=== PATIENT | male | born 1950 | race African-American/Black ===

== ENCOUNTER 2017-03-04 22:20 | Emergency (ER) | payer OTHER ==
[~2017-03-04] VITALS: Ht 172.7 cm; Wt 78.5 kg
[~2017-03-04 22:20] MED LIST: ACETAMINOPHEN325 M1 PO; AEROBID7 GM IH; ALDACTONE25 MG PO; AMARYL4 MG PO; AMLODIPINE BESY10 MG PO; AMLODIPINE BESYL5 MG PO; APAP500; ARTIFICIAL TEA1 EACH OPHTHALMIC; ARTIFICIAL TEAR15 M1 OP; ASPIRIN325 PO; ATIVAN0.5 MG PO; CARVEDILOL12.5 MG PO; CARVEDILOL25 MG PO; CATAPRES-TTS 10.1 M1 TD; CLONIDINE0.1 PO; COLACE100 MG PO; COMBIVENT IH; COMBIVENT INH; COMBIVENT RESPIM4 GM INH; COREG; COREG25 MG PO; DOXYCYCLINE 10100 MG PO; DUONEB 2.5-0.5 M3 ML IH; DUONEB 2.5-0.5 M3 ML INH; FISH OIL 1,0001 EAC5 PO; FISH OIL 1,001000 M1 PO; FISHOIL; GABAPENTIN100 MG PO; GLUCAGEN1 M2 IM; GLUCOPHAGE1000 MG PO; HUMALOG100 UNIT/2 SQ; HYDRALAZINE 10M10 MG PO; HYDRALAZINE 5050 MG PO; HYDRALAZINE PO; IMDUR 30 MG TAB30 M1 PO; IMDUR 60 MG TAB60 M1 PO; LANTUS SC; LANTUS SQ; LANTUS SUBQ; LIPITOR10 MG PO; LISINOPRIL10 MG PO; LISINOPRIL20 MG PO; LISINOPRIL30 MG PO; LOPERAMIDE 2 MG2 M1 PO; MAG-OX 400 TAB400 M1 PO; MAGOX 400400 MG PO; MOM PO; MUCINEX600 MG PO; NEURONTIN 300300 M1 PO; NITROSTAT0.4 MG SL; NITROSTAT0.4 MG SUBLING; NORCO 5-325 TA1 EACH PO; NORVASC10 MG PO; NOVOLOG100 UNIT/1; NOVOLOG100 UNIT/1 SQ; NOVOLOG100 UNIT/1 SUBQ; OCUVITE TABLET1 EAC1 PO; PLAVIX 75 MG TA75 M1 PO; PLAVIX 75 MG TA75 MG; PLAVIX 75 MG TA75 MG PO; PROAIR HFA8.5 GM; PROAIR HFA8.5 GM IH; PROVENTIL HFA6.7 G1 INH; RANITIDINE 150150 M1 PO; RANITIDINE 150150 MG PO; SEROQUEL 25 MG25 M1; SEROQUEL 25 MG25 M1 PO; SEROQUEL 50 MG50 M1 PO; SLOW-MAG64 MG PO; TEARS NATURALE1 EACH OPHTHALMIC; TOPROL XL25 MG PO; TRICOR145 MG; TRICOR145 MG PO; TRICOR48 MG PO; ULTRACET TABLE1 EACH PO; UNICOMPLEX M TA1 TA1; UNICOMPLEX M TA1 TA1 PO; VITAMIN D1000 UNI1; VITAMIN D1000 UNI1 PO; ZANTAC 150MG T150 M1 PO; ZENPEP DR 20,01 EACH PO; ZOLOFT25 MG PO
[2017-03-04] MEDS ORDERED: ZENPEP DR 20,01 EACH (23:34)
[2017-03-04 23:43] LABS: ABSOLUTE NEUTROPHILS 2.4 thou/uL (1.4-8.2); BASOPHILS 0.7 % (0.0-2.0); EOSINOPHILS 0.1 % (0.0-3.0); HEMATOCRIT 41.1 % (42.0-52.0); HEMOGLOBIN 13.4 gm/dL (14.0-18.0); MCH 28.4 pg (26.0-34.0); MCHC 32.6 g/dL (28.0-37.0); MCV 87.1 fL (80.0-100.0); MONOCYTES 5.7 % (1.0-8.0); PLATELET COUNT 159 thou/uL (150-400); POLYS 63.5 % (36.0-66.0); RBC 4.72 mil/uL (4.50-6.00); RDW 15.9 % (10.5-14.5); WBC 3.8 thou/uL (4.0-11.0)
[2017-03-04 23:48] LABS: MANUAL DIFF NO
[2017-03-04 23:50] LABS: CALCIUM 9.1 mg/dL (8.5-10.1); CREATININE 1.8 mg/dL (0.7-1.3)
== END 2017-03-05 03:00 | disposition short-term general hospital (02) ==
LOC: ER 22:20
PROVIDERS: Emergency Medicine
DX: F03.90 Unspecified dementia, unspecified severity, without behavioral disturbance, psychotic disturbance, mood disturbance, and anxiety (principal); I13.0 Hypertensive heart and chronic kidney disease with heart failure and stage 1 through stage 4 chronic kidney disease, or unspecified chronic kidney disease; E11.22 Type 2 diabetes mellitus with diabetic chronic kidney disease; N18.3 Chronic kidney disease, stage 3 (moderate); I50.9 Heart failure, unspecified; E11.40 Type 2 diabetes mellitus with diabetic neuropathy, unspecified; E78.5 Hyperlipidemia, unspecified; K21.9 Gastro-esophageal reflux disease without esophagitis; J44.9 Chronic obstructive pulmonary disease, unspecified; I25.10 Atherosclerotic heart disease of native coronary artery without angina pectoris; Z95.0 Presence of cardiac pacemaker; Z95.1 Presence of aortocoronary bypass graft; Z86.73 Personal history of transient ischemic attack (TIA), and cerebral infarction without residual deficits; Z86.19 Personal history of other infectious and parasitic diseases; Z79.4 Long term (current) use of insulin

== ENCOUNTER 2017-04-01 20:39 | Inpatient (IN) | payer OTHER ==
[~2017-04-01] VITALS: Ht 167.6 cm; Wt 77.0 kg
--- NOTE | ~2017-04-01 | HC ---
[facility] [place] [address] CONSULTATION Name: LENY LEONARD Room #: 237-P [facility] IN M.R.#: [id number] Admission: 04/01/17 Attend Phys: Casey Evans MD Discharge: Date of : 46 Report #: [id number] THIS REPORT FOR: //name// CC: Casey Davis INDICATION FOR CONSULTATION: Elevated creatinine and decreased urine output. REASON FOR PRESENTATION: Mental status issue from his emergency room. HISTORY OF PRESENT ILLNESS: The patient is currently intubated. He has baseline CVA and dementia. He is not able to provide me with the details of the history. In short, the patient is known to have chronic kidney disease, hypertension, ongoing psychiatric issues and was admitted to the hospital with an extremely high and elevated blood pressure. He required intubation to protect his airways because of unresponsiveness. He is known to have chronic kidney disease with a baseline creatinine of around 1.7. He had an extremely elevated blood pressure and at one point, his blood pressure was in the 200 range for the systolic blood pressures and in the 120-140 for the diastolic blood pressure. Unfortunately, the patient's blood pressure dropped significantly and he had a CT angiogram resulting in acute kidney injury with decreased urine output. I was consulted to manage his acute kidney injury. PAST MEDICAL HISTORY: 1. Hypertension. 2. CVAs. 3. Expressive aphasia. 4. Status post CABG. 5. Status post AICD. 6. Hyperlipidemia. 7. Right hemiparesis. 8. Ischemic cardiomyopathy with an EF of 25%. 9. CKD stage 3. 10. History of delusional disorder. 11. Hep C. 12. Chronically dilated left pupil. REVIEW OF SYSTEMS: Unable to obtain given the patient's current mental status. REPORTED MEDICATIONS: 1. Hydralazine: 2. Atorvastatin. 3. Plavix. 4. Lisinopril. 5. Lantus. 6. Carvedilol. [facility] [address] [place] [address] CONSULTATION Name: LENY LEONARD Room #: 237-P [facility] IN [facility].#: [id number] Admission: 04/01/17 Attend Phys: Casey Evans MD Discharge: Date of : 46 Report #: [id number] 7. Clonidine. FAMILY HISTORY: Unobtainable given the patient's mental status. SOCIAL HISTORY: He resides in a nursing facility. PHYSICAL EXAMINATION: GENERAL: The patient is currently intubated. VITAL SIGNS: Temperature was 37.2. HEAD AND NECK: ET tube. CHEST: Decreased air entry bilaterally. CARDIOVASCULAR: No rub detected. ABDOMEN: Soft, nontender. LOWER EXTREMITIES: No edema with intact peripheral pulses. LABORATORY VALUES: Reviewed. His creatinine is up to 2.5. Images including a chest x-ray reviewed. CBC with a hemoglobin of 12. UA with trace blood and a urine sodium of 28. ASSESSMENT, IMPRESSION AND PLAN: 1. Acute kidney injury due to aggressive blood pressure reduction and contrast-induced nephropathy. 2. Hypertension. 3. Remote history of dementia. 4. Cerebrovascular accidents. 5. As expected, his creatinine will worsen given the presenting blood pressure and the current blood pressure. 6. Avoid aggressive blood pressure reduction. 7. He also received contrast CT angiogram, which has contributed to his acute kidney injury. 8. I will manage his blood pressure appropriately. 9. Keep on IV fluids. 10. P.r.n. diuretics. 11. Ongoing workup for his mental status issues. This is in all likelihood hypertensive encephalopathy. <ELECTRONICALLY SIGNED> By: Krupa Noriega MD 04/04/17 0924 0815 0942 Krupa Noriega MD /nt
--- NOTE | ~2017-04-01 | HC ---
[facility] [place] [address] CONSULTATION Name: LENY LEONARD Room #: 203-P [facility] IN M.R.#: [id number] Admission: 04/01/17 Attend Phys: Casey Evans MD Discharge: Date of : 46 Report #: [id number] THIS REPORT FOR: //name// CC: Casey [facility] PRIMARY PHYSICIAN: Casey Evans MD REASON FOR REFERRAL: Acute respiratory failure. HISTORY OF PRESENT ILLNESS: The patient is a 66-year-old, male who was brought to the Emergency Room being found unresponsive by the nursing staff. He resides at [facility]. In the ER, the patient was also found to be very hypertensive with systolic blood pressure 247 mmHg. A pulmonary consultation was requested. The patient has a long complex history. He has prior history of CVA with right-sided hemiparesis, expressive aphasia, neuropathy and dementia. As mentioned, he resides at [facility]. According to the [facility] staff, the patient is normally alert and oriented. Early yesterday, the patient's blood pressure was noted to be high at 220/110 mmHg. He apparently has chronically dilated left pupil. Right pupil was felt to be normal. When he presented to the ER, patient was intubated. Hypertension was addressed. CT head was initially unremarkable. CT angiogram was also unremarkable. The patient's current blood pressure is better with systolic 150 while on nicardipine drip along with Diprivan. According to the nursing, patient has aroused, being restless on a ventilator, requiring sedation. Otherwise, history is limited. There is a DPOA who is not present. Telephone attempts was unsuccessfull by nursing. PAST MEDICAL HISTORY: As mentioned above CVA with right hemiparesis; expressive aphasia; neuropathy; dementia; hypertension; coronary artery disease, status post coronary artery bypass surgery, permanent pacemaker placement, ischemic cardiomyopathy, ejection fraction 25%; chronic kidney disease stage 3; diabetes mellitus type 2 with neuropathy; COPD; chronic pancreatitis; malnutrition; past tobacco use; history of hepatitis C; delusional disorder and chronically dilated left pupil. PAST SURGICAL HISTORY: Include myomectomy, reasons not specified. ALLERGIES: None to medications. [facility] [address] [place] [address] CONSULTATION Name: LENY LEONARD Room #: 203-P ADM IN M.R.#: [id number] Admission: 04/01/17 Attend Phys: Casey Evans MD Discharge: Date of : 46 Report #: [id number] MEDICATIONS ON TRANSFER: Include Imdur, hydralazine, ranitidine, Uniplex, Lipitor, Colace, Plavix, TriCor, vitamin D, Slow-Mag, fish oil, Zestril, Lantus, Humalog, Coreg, Neurontin and Zoloft. FAMILY HISTORY: Noncontributory. SOCIAL HISTORY: The patient has smoked in the past, but quit some time ago. He has a DPOA. No alcohol history. REVIEW OF SYSTEMS: Deferred as patient is intubated. PHYSICAL EXAMINATION: GENERAL: He is sedated. VITAL SIGNS: Temperature is 98.5 degrees Fahrenheit; pulse is 71; respiratory rate is 14; blood pressure has been as high as 269 mmHg systolic, currently is 154 mmHg systolic, diastolic around 100 mmHg and saturation 100%. HEENT: Normocephalic and atraumatic. The patient is orally intubated. NECK: Supple without lymphadenopathy or thyromegaly. CHEST: Breath sounds are clear bilaterally without any rales or wheezes. CARDIOVASCULAR: Normal S1 and S2. No obvious murmurs or gallop. Pulses are 2+/4+ bilaterally. ABDOMEN: Soft and nontender. No organomegaly or masses felt. GENITOURINARY: Deferred. RECTAL: Deferred. EXTREMITIES: There is no edema, cyanosis or clubbing. LABORATORY: Chest x-ray is clear. ET tube is approximately 3 cm above the marce. Sodium 142, potassium 3.7, chloride 103 and CO2 33. BUN is 25 and creatinine is 1.7. Liver function profile is unremarkable. Troponin 0.11. WBC 2000, hemoglobin of 13.4 and platelets are normal. Arterial blood gas revealed pH 7.38, pCO2 54 and pO2 of 100 on FiO2 50%. IMPRESSION: 1. Altered mental status in a 66-year-old -[place] male with hypertensive emergency. Has a long history of cerebrovascular accident, coronary artery disease and ischemic cardiomyopathy along with dementia. Etiology is probably related to severe hypertensive emergency. Concern for recurrent cerebrovascular accident. Other considerations include dysrhythmias related to his heart disease. 2. Acute on chronic hypercapnic, hypoxic respiratory failure due to above. Note that the patient's arterial blood gas suggests chronic hypercarbia with metabolic compensation. 3. History of chronic kidney disease. 4. In face of severe hypertension, concerns for secondary hypertension. 5. Mildly elevated troponin, likely related to stress demand due to above. 6. Leukopenia. Apparently, patient has a history of chronic pancytopenia. [facility] [address] [address] CONSULTATION Name: LENY LEONARD Room #: 203-P ADM IN Ken#: [id number] Admission: 04/01/17 Attend Phys: Casey Evans MD Discharge: Date of : 46 Report #: [id number] Etiology unclear. 7. Past history of cerebrovascular accident with right hemiparesis, expressive aphasia. 8. History of dementia. 9. Coronary artery disease with ischemic cardiomyopathy, stated ejection fraction 25%, status post pacemaker, automated implantable cardioverter defibrillator placement. 10. History of chronic obstructive pulmonary disease without obvious evidence of exacerbation. 11. Diabetes mellitus type 2 with neuropathy, probable nephropathy. 12. History of chronic pancreatitis. 13. History of tobacco use. 14. Chronically dilated left pupil. RECOMMENDATIONS: We will continue mechanical ventilation and defer weaning for now. I will continue nicardipine for now. Diprivan seems to help his blood pressure. The patient will benefit from nephrology consultation to manage his chronic kidney disease along with severe hypertension. In terms of encephalopathy, this should improve with better management of his hypertension. Neurology has been consulted. DVT and GI prophylaxis has been addressed. Thank you for this consultation. <ELECTRONICALLY SIGNED> By: Singh Jacobsen MD 04/09/17 1518 1032 1139 Singh Jacobsne MD /nt
--- NOTE | ~2017-04-01 | EKG ---
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 : 1950 Requested By: Rico Valdes Order Number: [id number] MD: Pipo Alan Measurements Intervals [place] Rate: 66 P: 105 [place]: 48 QRS: 236 QRSD: 167 T: 258 QT: 488 QTc: 512 Interpretive Statements A-V dual-paced rhythm No further analysis attempted due to paced rhythm Baseline wander in lead(s) I,III,aVL Compared to ECG 04/25/2016 07:20:59 Atrial-sensed ventricular-paced complex(es) or rhythm no longer present Electronically Signed On 04-02-2017 8:56:31 CDT by Pipo Alan [email or web address] <ELECTRONICALLY SIGNED> By: Pipo Alan MD, [facility] 04/02/17 0856 39 39 Pipo Alan MD, [facility] /EPI
--- NOTE | ~2017-04-01 | HC ---
[facility] [place] [address] CONSULTATION Name: AISHALENY Room #: 237-P [facility] IN ..#: [id number] Admission: 04/01/17 Attend Phys: Casey Evans MD Discharge: Date of : 46 Report #: [id number] THIS REPORT FOR: //name// CC: Casey Davis DATE OF SERVICE: 04/01/2017 HISTORY OF PRESENT ILLNESS: This is a 66-year-old male patient who is unable to provide any history at all. I talked to the emergency room physician multiple times and talked to the nurses looking after this patient. There is a phone number for durable power of regulatory attorney in this patient. His name is listed as Camron Wellington and his phone number is listed as [phone]. I tried to call him and it goes directly to the mailbox saying that the mailbox is not set up. The history I got is that this patient was found unresponsive at 3 p.m. today. They thought he was sleeping, but when he did not become responsive, then they brought him to emergency room. He was unresponsive here and he was intubated by emergency room physician. There was concern about his pupil because the left pupil was fixed and dilated. I reviewed the records and then subsequently discussed with him. There is admission history and physical examination by Dr. Tiffanie Meraz in 2015, which document that this left pupil is fixed and dilated chronically. Those reviewed notes also indicate that previously, he has been admitted with altered mental status and in fact that time, the notes indicate that he was responsive to the painful stimuli only. Some of the notes indicate that he became responsive, but he does not like to be examined. Nurses tell me that the information they got from the jail is that usually he is responsive, although the records indicate that he has a history of dementia and right-sided paralysis because of previous stroke and in fact was admitted at one time with even low blood sugar. He has a documented kidney disease in the past and his creatinine has fluctuated, it has gone as high as 2.5 at one time, but usually stays around 1.7 and has gone at one time as low as 1.5. REVIEW OF SYSTEMS: Pretty extensive in this patient. This patient has a previous history of dementia and I reviewed his CT and he does have pretty significant infarcts on both sides in the past. He also has a history of a pacemaker and defibrillator. He has a history of ischemic cardiomyopathy. He has a history of neuropathy. History from the jail where he lives is not completely clear. This was his relevant 14-point review of system. PAST MEDICAL HISTORY: Positive for what looks like a large CVA. FAMILY HISTORY: Unavailable. SOCIAL HISTORY: He is in a jail. I cannot reach his durable power of [facility] [address] [place] [address] CONSULTATION Name: LENY WELLINGTON Room #: 237-P [facility] IN ..#: [id number] Admission: 04/01/17 Attend Phys: Casey Evans MD Discharge: Date of : 46 Report #: [id number] regulatory attorney. PHYSICAL EXAMINATION: Pretty limited. He has virtually no response to painful stimuli or verbal stimuli. His left pupil is fixed and dilated and the right pupil is small. He does have a pacemaker. His blood sugar is 223. I reviewed his CT scan and that is summarized as above. IMPRESSION: The diagnosis is not clear in this patient and it is very difficult to confirm the diagnosis in this patient. Many subjective decisions need to be taken in this patient and I am unable to reach the durable power of regulatory attorney to discuss those. It is possible this patient has hypertensive encephalopathy. His blood pressure was extremely high when he came in or when he was found. It has gone as high as 249/140 and one of the readings was 269/172. That would indicate this patient most likely has hypertensive encephalopathy superimposed on his baseline multiple infarcts which he has. I cannot exclude other etiologies like another infarct including brainstem stroke. The problem we have is that this patient has a pacemaker. We do not know what pacemaker he has. We cannot do an MRI of the brain and MRA. Secondly, this patient has chronic renal problems and his BUN and creatinine is high. If we give him dye, he has chances of going into the renal failure and the risk needs to be justified. The third thing is that this patient's symptoms started at least 7-1/2 hours ago. It started at 3:00 and it is almost 10:28 now. Even that time of the onset is not totally confirmed and it may be longer than that. Therefore, this patient is clearly outside the window for any TPA. He is outside the window for any interventions in the anterior circulation. Some people have tried intervention on basilar artery for longer, but the prognosis for basilar artery thrombosis is bad irrespective of what we do in those patients, especially in this patient who has extensive strokes already in the brain and any stroke at any place will make his prognosis very guarded. Unfortunately, we are not able to discuss anything with the durable power of regulatory attorney. We also need to make a decision how aggressive to be in this unfortunate patient. I discussed all his options with emergency room physician. I did ask them to consult nephrology. I asked them to continue to make an effort to contact the family. I do not believe proceeding with CT angiogram justify the risk in this patient and I will suggest not doing that because this patient is not a good intervention candidate in my view. I will favor conservative treatment in this patient and try to lower the blood pressure and hope he will recover. If he had another stroke, especially in the brainstem area, his prognosis is pretty poor and basically the only thing for which there is some hope for recovery will be hypertensive encephalopathy, but even from that the hope is slim with his previous disease. There are advantages and [facility] [address] [place] [address] CONSULTATION Name: LENY WELLINGTON Room #: 237-P ADM IN M.R.#: [id number] Admission: 04/01/17 Attend Phys: Casey Evans MD Discharge: Date of : 48 Report #: [id number] disadvantages of multiple approaches in this patient and I will suggest continue to contact the family and be less aggressive in this patient. Would also suggest that nephrology be consulted to give an opinion in this patient about using any dye in this patient. As far as pupil is concerned, there is a fairly good documentation it is old and that makes it aneurysm less likely. Thank you very much for this referral. If you have any question, please feel free to contact me. As mentioned above, I will suggest very conservative care in this patient if the family agree and not to do any extensive workup like a CT angio because it is unlikely to alter the prognosis in this patient whether it is hypertensive emergency or any new stroke, especially the brainstem stroke in this patient, but again I will strongly suggest trying to continue to the family to see if they are agreeable for that. <ELECTRONICALLY SIGNED> By: Guilherme Mariano MD 04/02/17 0349 2235 0027 Guilherme Mariano MD /nt
[~2017-04-01 20:39] MED LIST changes: +ZENPEP DR 20,01 EACH
[2017-04-01 20:43] VITALS: BP 128/107; BP 249/140
[2017-04-01 21:11] LABS: POC CA IONIZED 4.2 mg/dL (4.5-5.3); POC CREATININE 1.6 mg/dL (0.6-1.3); POC HEMOGLOBIN 14.6 g/dL (14.0-18.0); POC POTASSIUM 5.1 mmol/L (3.5-5.1)
[2017-04-01 21:38] LABS: ABG SAMPLE TYPE ARTERIAL; BE(vivo) 5.7 mmol/L (-2 to +3); HCO3 32.2 mmol/L (22.0-26.0); LACTATE 0.86 mmol/L (0.5-2.0); O2(CT) 19.1 mL/dL (15.0-23.0); O2Hb 95.9 % (92.0-98.0); PCO2 54.6 mmHg (35.0-45.0); PO2 101.8 mmHg (80.0-100.0); pH 7.389 (7.360-7.450); sO2 97.5 % (92.0-98.0); tCO2 33.9 mmol/L (24.0-30.0)
[2017-04-01 21:41] LABS: ABG COMMENT A/C MODE; STICK SITE L.BRACHIAL; TIDAL VOLUME 500 ml
[2017-04-01 22:06] LABS: HEMATOCRIT 41.5 % (42.0-52.0); HEMOGLOBIN 13.4 gm/dL (14.0-18.0); MCH 28.2 pg (26.0-34.0); MCHC 32.3 g/dL (28.0-37.0); MCV 87.4 fL (80.0-100.0); PLATELET COUNT 122 thou/uL (150-400); RBC 4.75 mil/uL (4.50-6.00)
[2017-04-01 22:08] LABS: MANUAL DIFF YES
[2017-04-01 22:13] LABS: CALCIUM 9.6 mg/dL (8.5-10.1); CREATININE 1.7 mg/dL (0.7-1.3); POTASSIUM 3.7 mmol/L (3.5-5.1)
[2017-04-01 22:21] LABS: APTT 28.5 Seconds (24.5-32.8); INR 1.2
[2017-04-01 22:22] LABS: ALBUMIN 3.6 g/dL (3.4-5.0); TOTAL BILIRUBIN 0.8 mg/dL (<0.1-1.0); TROPONIN-I 0.1 ng/mL (<0.04-0.07)
[2017-04-01 22:42] LABS: ABSOLUTE NEUTROPHILS 0.7 thou/uL (1.4-8.2); ANISOCYTOSIS 1+; TOTAL CELL COUNT 100
[2017-04-01 22:43] LABS: POLYCHROMASIA OCCASIONAL
[2017-04-01 23:23] LABS: AMP/METHAMP Negative (Negative); BARBITURATES Negative (Negative); BENZODIAZEPINES Negative (Negative); COCAINE Negative (Negative); METHADONE Negative (Negative); OPIATES Negative (Negative); PCP Negative (Negative); THC Negative (Negative)
[2017-04-01 23:56] VITALS: BP 213/120
[2017-04-02] VITALS (30 sets, daily range): BP systolic 70–190; BP diastolic 58–112
[2017-04-02] MEDS ORDERED: CLONIDINE0.1 PO (02:52)
[2017-04-02 21:21] LABS: URINE BLOOD 1+ (Negative); URINE COLOR YELLOW; URINE GLUCOSE-RANDOM* NEGATIVE (Negative); URINE KETONES NEGATIVE (Negative); URINE NITRITE NEGATIVE (Negative); URINE PROTEIN (DIPSTICK) TRACE (Negative); URINE SPECIFIC GRAVITY <= 1.005 (1.003-1.035)
[2017-04-02 21:23] LABS: ICTOTEST (BILI CONFIRMATORY) Negative (Negative); URINE BILIRUBIN NEGATIVE (Negative)
[2017-04-02 21:30] LABS: HYALINE CASTS 0-3 Few /LPF (None Seen); SQUAMOUS 0-3 Few /LPF (0-3)
[2017-04-02 21:31] LABS: BACTERIA 1-9 Few /HPF (None Seen); CRYSTALS None Seen /LPF (None Seen); URINE RBC 3-10 Few /HPF (0-2); URINE WBC 6-15 Few /HPF (0-5)
[2017-04-03 05:17] LABS: ABG SAMPLE TYPE ARTERIAL; BE(vivo) 0.5 mmol/L (-2 to +3); HCO3 24.7 mmol/L (22.0-26.0); LACTATE 1.38 mmol/L (0.5-2.0); O2(CT) 17.3 mL/dL (15.0-23.0); O2Hb 97.3 % (92.0-98.0); PO2 112.2 mmHg (80.0-100.0); sO2 98.2 % (92.0-98.0); tCO2 25.8 mmol/L (24.0-30.0)
[2017-04-03 05:18] LABS: STICK SITE L.BRACHIAL; TIDAL VOLUME 500 ml
[2017-04-03 06:14] LABS: HEMATOCRIT 36.3 % (42.0-52.0); MCH 28.4 pg (26.0-34.0); MCV 86.2 fL (80.0-100.0); RBC 4.22 mil/uL (4.50-6.00); RDW 15.9 % (10.5-14.5); WBC 4.7 thou/uL (4.0-11.0)
[2017-04-03 06:24] LABS: ALBUMIN 2.9 g/dL (3.4-5.0); CALCIUM 8.4 mg/dL (8.5-10.1); CREATININE 2.5 mg/dL (0.7-1.3); POTASSIUM 3.7 mmol/L (3.5-5.1)
[2017-04-03 10:43] LABS: ABG COMMENT 1 HR CPAP TRIAL; ABG SAMPLE TYPE ARTERIAL; HCO3 28.1 mmol/L (22.0-26.0); LACTATE 0.84 mmol/L (0.5-2.0); O2(CT) 18.1 mL/dL (15.0-23.0); O2Hb 96.8 % (92.0-98.0); PCO2 45.2 mmHg (35.0-45.0); PO2 102.7 mmHg (80.0-100.0); Pressure Support 5 cm H20; STICK SITE L.BRACHIAL; pH 7.412 (7.360-7.450); sO2 97.7 % (92.0-98.0); tCO2 29.5 mmol/L (24.0-30.0)
[2017-04-04 04:51] LABS: HEMATOCRIT 37.2 % (42.0-52.0); HEMOGLOBIN 12.3 gm/dL (14.0-18.0); MCH 28.5 pg (26.0-34.0); MCHC 33.2 g/dL (28.0-37.0); MCV 85.8 fL (80.0-100.0); RBC 4.33 mil/uL (4.50-6.00); RDW 15.7 % (10.5-14.5); WBC 3.9 thou/uL (4.0-11.0)
[2017-04-04 04:58] LABS: CALCIUM 8.4 mg/dL (8.5-10.1); CREATININE 1.9 mg/dL (0.7-1.3); POTASSIUM 3.3 mmol/L (3.5-5.1)
[2017-04-04 06:00] VITALS: BP 171/75
[2017-04-04 11:50] VITALS: BP 189/98
[2017-04-04 15:40] VITALS: BP 166/96
[2017-04-04 19:05] VITALS: BP 144/88
[2017-04-04 23:45] VITALS: BP 159/88
[2017-04-05] VITALS (7 sets, daily range): BP systolic 112–225; BP diastolic 70–122
[2017-04-05 04:11] LABS: ALBUMIN 2.6 g/dL (3.4-5.0); CALCIUM 8.9 mg/dL (8.5-10.1); CREATININE 1.9 mg/dL (0.7-1.3); PHOSPHORUS 3.4 mg/dL (2.5-4.9); POTASSIUM 3.5 mmol/L (3.5-5.1)
[2017-04-05 04:31] LABS: HEMATOCRIT 36.1 % (42.0-52.0); MCH 28.5 pg (26.0-34.0); MCHC 33.2 g/dL (28.0-37.0); MCV 85.8 fL (80.0-100.0); RBC 4.21 mil/uL (4.50-6.00); RDW 15.6 % (10.5-14.5); WBC 3.3 thou/uL (4.0-11.0)
[2017-04-06] VITALS (7 sets, daily range): BP systolic 133–206; BP diastolic 84–127
[2017-04-06 05:36] LABS: ALBUMIN 2.8 g/dL (3.4-5.0); CALCIUM 9.4 mg/dL (8.5-10.1); CREATININE 1.7 mg/dL (0.7-1.3); PHOSPHORUS 3.3 mg/dL (2.5-4.9); POTASSIUM 3.4 mmol/L (3.5-5.1)
[2017-04-07] VITALS (7 sets, daily range): BP systolic 100–207; BP diastolic 58–111
[2017-04-07 04:26] LABS: HEMATOCRIT 33.5 % (42.0-52.0); HEMOGLOBIN 11.1 gm/dL (14.0-18.0); MCH 28.4 pg (26.0-34.0); MCHC 33.1 g/dL (28.0-37.0); MCV 85.8 fL (80.0-100.0); RBC 3.91 mil/uL (4.50-6.00); RDW 15.3 % (10.5-14.5); WBC 2.8 thou/uL (4.0-11.0)
[2017-04-07 04:48] LABS: ALBUMIN 2.8 g/dL (3.4-5.0); CALCIUM 9.6 mg/dL (8.5-10.1); CREATININE 1.6 mg/dL (0.7-1.3); PHOSPHORUS 5.4 mg/dL (2.5-4.9); POTASSIUM 3.7 mmol/L (3.5-5.1)
[2017-04-08 03:10] VITALS: BP 192/89
[2017-04-08 04:18] LABS: ALBUMIN 2.8 g/dL (3.4-5.0); CALCIUM 9.7 mg/dL (8.5-10.1); CREATININE 1.8 mg/dL (0.7-1.3); PHOSPHORUS 4.2 mg/dL (2.5-4.9); POTASSIUM 3.7 mmol/L (3.5-5.1)
[2017-04-08 07:40] VITALS: BP 190/114
[2017-04-08 14:15] VITALS: BP 167/88
[2017-04-08 16:20] VITALS: BP 190/107
[2017-04-08 19:27] VITALS: BP 222/109
[2017-04-09] VITALS: BP 183/111
[2017-04-09 05:12] VITALS: BP 213/121
[2017-04-09 05:27] LABS: ALBUMIN 2.7 g/dL (3.4-5.0); CALCIUM 9.6 mg/dL (8.5-10.1); CREATININE 1.7 mg/dL (0.7-1.3); PHOSPHORUS 3.2 mg/dL (2.5-4.9); POTASSIUM 4.3 mmol/L (3.5-5.1)
[2017-04-09 07:25] VITALS: BP 151/90
[2017-04-09 10:47] VITALS: BP 138/72
[2017-04-09] MEDS ORDERED: DUONEB 2.5-0.5 M3 ML INH (14:11)
[2017-04-09] MEDS ORDERED: HYDRALAZINE 5050 MG PO (14:12)
[2017-04-09] MEDS ORDERED: CATAPRES-TTS 20.2 M1 TRANSDERM (14:12)
[2017-04-09] MEDS ORDERED: CARVEDILOL12.5 MG PO (14:13)
[2017-04-09] MEDS ORDERED: SPIRONOLACTONE100 M1 PO (14:14)
[2017-04-09] MEDS ORDERED: SEROQUEL 25 MG25 M1 PO (14:14)
[2017-04-09] MEDS ORDERED: CHLORTHALIDONE25 MG PO (14:14)
[2017-04-09] MEDS ORDERED: LISINOPRIL40 MG PO (14:14)
[2017-04-09 15:00] VITALS: BP 138/72
[2017-04-09 15:10] VITALS: BP 150/79
== END 2017-04-09 17:40 | DRG 208 ==
LOC: ER 20:39 → ICU 22:33 → EROBS 22:33 → ICU 23:26 → 2N 04-04 11:18
PROVIDERS: Emergency Medicine; Hospitalist; Internal Medicine Pulmonary Disease
DX: J96.21 Acute and chronic respiratory failure with hypoxia (principal); G92 Toxic encephalopathy; I13.0 Hypertensive heart and chronic kidney disease with heart failure and stage 1 through stage 4 chronic kidney disease, or unspecified chronic kidney disease; I16.1 Hypertensive emergency; N17.9 Acute kidney failure, unspecified; I50.22 Chronic systolic (congestive) heart failure; D61.818 Other pancytopenia; I69.351 Hemiplegia and hemiparesis following cerebral infarction affecting right dominant side; F03.90 Unspecified dementia, unspecified severity, without behavioral disturbance, psychotic disturbance, mood disturbance, and anxiety; E78.5 Hyperlipidemia, unspecified; I25.10 Atherosclerotic heart disease of native coronary artery without angina pectoris; I25.5 Ischemic cardiomyopathy; J44.9 Chronic obstructive pulmonary disease, unspecified; N18.3 Chronic kidney disease, stage 3 (moderate); K21.9 Gastro-esophageal reflux disease without esophagitis; E11.22 Type 2 diabetes mellitus with diabetic chronic kidney disease; E11.40 Type 2 diabetes mellitus with diabetic neuropathy, unspecified; F22 Delusional disorders; J96.22 Acute and chronic respiratory failure with hypercapnia; D72.819 Decreased white blood cell count, unspecified; N14.2 Nephropathy induced by unspecified drug, medicament or biological substance; T50.905A Adverse effect of unspecified drugs, medicaments and biological substances, initial encounter; Z95.1 Presence of aortocoronary bypass graft; Z87.891 Personal history of nicotine dependence; Z79.899 Other long term (current) drug therapy; Z95.810 Presence of automatic (implantable) cardiac defibrillator; Y92.89 Other specified places as the place of occurrence of the external cause
CPT/HCPCS: 10078; 10081; 27000

== ENCOUNTER 2017-04-22 10:08 | Inpatient (IN) | payer OTHER ==
[~2017-04-22] VITALS: Ht 177.8 cm; Wt 70.8 kg
--- NOTE | ~2017-04-22 | EKG ---
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1950 Requested By: Rico Valdes Order Number: [id number] MD: Darinel Valdivia Measurements Intervals [place] Rate: 56 P: 82 [place]: 63 QRS: 240 QRSD: 140 T: 232 QT: 492 QTc: 475 Interpretive Statements Atrial-sensed ventricular-paced rhythm No further analysis attempted due to paced rhythm Compared to ECG 04/01/2017 20:40:02 No significant changes Electronically Signed On 04-22-2017 16:49:40 CDT by Darinel Valdivia [email or web address] <ELECTRONICALLY SIGNED> By: Darinel Valdivia MD 04/22/17 1649 1028 1028 Darinel Valdivia MD /BELL
--- NOTE | ~2017-04-22 | HC ---
[facility] [place] [address] CONSULTATION Name: LENY LEONARD Room #: 461-P [facility] IN M.R.#: [id number] Admission: 04/22/17 Attend Phys: Anthony Rose MD Discharge: 04/26/17 Date of : 46 Report #: [id number] THIS REPORT FOR: //name// CC: FAM unknown Anthony Rose DATE OF SERVICE: 04/22/2017 REASON FOR CONSULTATION: Elevated creatinine. HISTORY OF PRESENT ILLNESS: This is a 66-year-old male who lives at a formerly [facility]. He came in today apparently with some mental status changes. We were asked to see the patient for continuing evaluation of his renal status changes. It turns out that patient was in the hospital and just discharged 13 days ago. He was seen at that time by one of my associates, Krupa Noriega MD. The patient has a chronic history of an elevated creatinine. Looking back through the records, he has had an elevated creatinine at least for the past 5-7 years or longer. He runs a baseline creatinine of about 1.7. He has longstanding hypertension. During his most recent hospitalization, his blood pressure was very difficult to control. He was sent out on a rather complex grouping of medications. The patient is not really able to provide any history. I would note that on presentation, he was mildly hypotensive and that was after being very hypertensive during his prior hospitalization. In fact, his admitting blood pressure was 81/49 with a heart rate of 55 and he is paced. He has been up and down and back up again since that time. He has not been hypoxemia. Labs are as noted below. PAST MEDICAL HISTORY: Longstanding hypertension. He has had multiple CVAs. He has some aphasia. He has previous coronary bypass graft surgery. He has a pacemaker and AICD in place. He has ischemic cardiomyopathy with a documented ejection fraction of 25%, also has a history of hepatitis C. MEDICATIONS: As listed from his care center include atorvastatin 10 mg daily; carvedilol 12.5 mg b.i.d.; chlorthalidone 25 mg daily; vitamin D3 1000 units daily; clonidine #2 patch weekly; Plavix 75 mg daily; TriCor 145 mg daily; gabapentin 300 mg at bedtime; hydralazine 100 mg t.i.d.; Lantus 10 units at bedtime; Humalog 3 units with meals; DuoNeb inhaler; Imdur 60 mg daily; lisinopril 40 mg daily; Slow-Mag 64 mg b.i.d.; multivitamin daily; fish oil 1000 mg daily; Seroquel 12.5 mg b.i.d.; ranitidine 150 mg b.i.d.; Zoloft 25 mg daily; spironolactone 100 mg b.i.d., big dose of that. ALLERGIES: No known medical allergies. FAMILY HISTORY: Noncontributory. SOCIAL HISTORY: The patient lives at a local care center. [address] [address] CONSULTATION Name: LENY LEONARD Room #: 461-P [facility] IN [place].R.#: [id number] Admission: 04/22/17 Attend Phys: Anthony Rose MD Discharge: 04/26/17 Date of : 48 Report #: [id number] REVIEW OF SYSTEMS: Unobtainable. PHYSICAL EXAMINATION: GENERAL: A 66-year-old male who does respond some to me. He appears in no distress, cannot give me any reliable history. VITAL SIGNS: Blood pressure 137/63, heart rate 64, respiratory rate 18, oxygen saturation 99, temperature 97.7. HEENT: Pupils are slightly unequal, but that is chronic. Sclerae nonicteric. Oral mucosa is moist. NECK: Veins are not distended. There is a pacemaker ICD in the left subclavian area. CHEST: Fairly clear. CARDIOVASCULAR: Heart has a regular rate and rhythm, bordering on a bradycardia. ABDOMEN: Soft, few bowel sounds are present. I cannot percuss or palpate the urinary bladder. EXTREMITIES: Show no peripheral edema. Overall, it looks dry on exam. LABORATORY DATA: Sodium 136; potassium 6.5, came down to 5.4 post-treatment; chloride 101; bicarb 29; BUN 49; creatinine 3.2, again that is up from his recent baseline of 1.6-1.7; glucose 132; calcium 10.3. Total protein 8.2, albumin 3.6. Hemoglobin 12.3; hematocrit 38.1; white count 4.9; platelets 223,000. No urinalysis available yet. ASSESSMENT: 1. Acute kidney injury. Creatinine is about double of normal. It is all on top of chronic kidney disease stage 3. He looks dry on exam. He has been on a lot of medications. We will give him some fluid back intravenously and see if we can get that corrected. 2. Hyperkalemia. He has been on a lot of spironolactone. It is at a dose of 100 mg b.i.d. . He was also on lisinopril. Those have been stopped. His potassium has been repeated and improved post-treatment. We will check again in the morning. Long-term we some lisinopril, but I doubt we will want that much in the way of spironolactone. 3. Mental status changes seem to be okay at this point. PLAN: 1. Meds reviewed and adjusted. 2. I will put him back on saline 125 an hour for 2 liters. At that point, there should be better volume replete. [facility] [address] [place] [address] CONSULTATION Name: LENY LEONARD Room #: 461-P DIS IN M.R.#: [id number] Admission: 04/22/17 Attend Phys: Anthony Rose MD Discharge: 04/26/17 Date of : 48 Report #: [id number] 3. Repeat labs. 4. We will follow along with the care of this patient. <ELECTRONICALLY SIGNED> By: Dayo Naranjo MD 05/01/17 1127 1754 1946 Joe Pitt MD /nt
--- NOTE | ~2017-04-22 | EEG ---
[facility] [place] [address] ELECTROENCEPHALOGRAM Name: LENY LEONARD Room #: 461-P ADM IN M.R.#: [id number] Admission: 04/22/17 Attend Phys: Anthony Rose MD Discharge: Date of : 48 Report #: [id number] THIS REPORT FOR: //name// CC: FAM unknown Anthony Rose DATE OF SERVICE: 04/23/2017 This patient's EEG was carried out for an episode of unresponsiveness. EEG was done by placing the electrodes by standard 10-20 system of electrode placement. Both referential and sequential montages were used for recording. Background activity is difficult to tell because the patient has a lot of muscle artifact. It appeared to be about 7 Hz and 25 microvolt. The patient went to sleep that was associated with bilateral slowing. Photic stimulation is unremarkable. IMPRESSION: This patient's EEG is masked by a lot of artifact and difficult to interpret. No definite conclusion can be drawn on the basis of EEG. EEG does not appear to be showing any epileptiform activity. However, it is slow. There is a nonspecific finding which can occur with encephalopathy, effect of psychotropic medication, dementia, etc. Clinical correlation is recommended. Thank you very much for referral. <ELECTRONICALLY SIGNED> By: Guilherme Mariano MD 04/24/17 1941 1444 1506 Guilherme Mariano MD /epi
--- NOTE | ~2017-04-22 | H ---
[facility] [place] [address] HISTORY AND PHYSICAL Name: LENY LEONARD Room #: 461-P [facility] IN M.R.#: [id number] Admission: 04/22/17 Attend Phys: Anthony Rose MD Discharge: 04/26/17 Date of : 48 Report #: [id number] THIS REPORT FOR: //name// CC: FAM unknown Anthony Rose MD DATE OF SERVICE: 04/22/2017 CHIEF COMPLAINT: Altered mental status. 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 History was primarily obtained from the patient's chart and also talking to the ER physician. The patient has severe expressive aphasia and unable to give a good history. The patient had sudden onset of altered mental status at 9:00 this morning. He went unresponsive for several seconds as per the [facility]. His blood glucose was 166. The patient denies any complaint at present. The patient was admitted earlier this month for hypertensive emergency and altered mental status. He was seen by a neurologist at that time. He also underwent EEG, which did not show any epileptiform activity. They were unable to do the MRI because of his ICD. He also has chronically dilated left pupil. The patient denies any fever or chills. No chest pain, no dizziness. He is able to follow simple commands. PAST MEDICAL HISTORY: Significant for CVA; altered mental status in the past; hypertensive emergency; history of contusion of the head; dehydration; dementia; history of CABG; history of hyperlipidemia; history of pacemaker/AICD; cardiomyopathy, EF of 25%; COPD; chronic kidney disease, stage 3; diabetes type 2; history of chronic pancreatitis; malnutrition; myomectomy; CHF; neuropathy; tobacco use; hepatitis C; delusional disorder; and chronically dilated left pupil. FAMILY HISTORY: Unknown. SOCIAL HISTORY: Former smoker, quit more than a year ago. No alcohol abuse or illicit drug abuse. The patient is a [facility] resident. REVIEW OF SYSTEMS: Unable to obtain from the patient because of the expressive aphasia and altered mental status. HOME MEDICATIONS: Reviewed. ALLERGIES: No known drug allergy. [facility] [address] [place] [address] HISTORY AND PHYSICAL Name: LENY LEONARD Room #: 461-P [facility] IN ..#: [id number] Admission: 04/22/17 Attend Phys: Anthony Rose MD Discharge: 04/26/17 Date of : 48 Report #: [id number] PHYSICAL EXAMINATION: VITAL SIGNS: Reviewed. Blood pressure is 137/63, heart rate of 64 per minute, afebrile. The patient is saturating 99% on room air. GENERAL: The patient is awake and alert. He is able to follow simple commands. He has severe expressive aphasia. He knows his name. He is not oriented to place or time. Right pupil is around 2 mm. Left pupil is dilated at 7 mm, reacting to light. THROAT: Appears normal. NECK: Supple, no JVD, no bruit, no lymphadenopathy. CARDIOVASCULAR: S1 and S2, no S3. There is a systolic murmur heard. CHEST: Bilateral air entry present. Clear on auscultation. ABDOMEN: Soft, bowel sounds present, no mass, no organomegaly, no tenderness. PERIPHERY: No pedal edema. Dorsalis pedis 1+. NEUROLOGICAL: He has some mild weakness on the right side. Power is 4/5. He is able to move the left side well. He does have a facial droop on the right side, and he has expressive aphasia. LABORATORIES: Reviewed. His white count is 4.8. Hemoglobin is 12.3. His platelets are 223. His chemistry showed a potassium of 6.5. The repeat one is 5.4. His bicarb is 29. His BUN and creatinine of 49 and 3.2. His creatinine was 1.7 on 04/09/2017. His blood glucose was 169. AST and ALT are within normal limit. Troponin is 0.15. UA is presently pending. He had an EKG done earlier today, which showed atrial-sensed ventricular-paced rhythm. CT of the brain showed no acute intracranial abnormality. There is a stable large right parietal, left temporal and frontal ischemic infarct with encephalomalacia. Chest x-ray showed no acute process. ASSESSMENT AND PLAN: 1. Episode of altered mental status, most likely metabolic encephalopathy secondary to his worsening renal failure. 2. Acute renal failure. It appears that the patient ____ diuresed excessively. His blood pressure has also been on the lower end on arrival to the Emergency Room. His blood pressure initially was 81/49. The patient will be gently hydrated with intravenous fluids. We will consult Renal. He did have an ultrasound of his kidneys done earlier this month, which showed no hydronephrosis. 3. History of congestive heart failure with severe cardiomyopathy. The patient clinically appears to be decompensated. We will need to monitor closely. We will restart him back on his medications as he tolerates and as the blood pressure improves. We will hold off on BROOKE inhibitor at present. 4. History of old cerebrovascular accident. 5. History of coronary artery disease. We will do serial troponins. 6. History of severe cardiomyopathy, ejection fraction of 25%. [facility] [address] [place] [address] HISTORY AND PHYSICAL Name: LENY LEONARD Room #: 461-P DIS IN M.R.#: [id number] Admission: 04/22/17 Attend Phys: Anthony Rose MD Discharge: 04/26/17 Date of : 48 Report #: [id number] 7. Diabetes. We will place him on sliding scale insulin. 8. Dementia. 9. History of chronic kidney disease, stage 2. 10. Deep venous thrombosis prophylaxis: He will be on sequential compression device on the leg for deep venous thrombosis prophylaxis. <ELECTRONICALLY SIGNED> By: Anthony Rose MD 04/29/17 1319 1644 1851 Anthony Rose MD /nt
[2017-04-22 10:08] VITALS: BP 81/49
[~2017-04-22 10:08] MED LIST changes: +CATAPRES-TTS 20.2 M1 TRANSDERM; +CHLORTHALIDONE25 MG PO; +LISINOPRIL40 MG PO; +SPIRONOLACTONE100 M1 PO
[2017-04-22 11:22] LABS: ABSOLUTE NEUTROPHILS 2.5 thou/uL (1.4-8.2); BASOPHILS 0.7 % (0.0-2.0); HEMATOCRIT 38.1 % (42.0-52.0); HEMOGLOBIN 12.3 gm/dL (14.0-18.0); LYMPHOCYTES 37.8 % (24.0-44.0); MANUAL DIFF NO; MCHC 32.3 g/dL (28.0-37.0); MCV 86.5 fL (80.0-100.0); MONOCYTES 10.6 % (1.0-8.0); PLATELET COUNT 223 thou/uL (150-400); POLYS 50.9 % (36.0-66.0); RDW 15.1 % (10.5-14.5); WBC 4.9 thou/uL (4.0-11.0)
[2017-04-22 11:31] LABS: CALCIUM 10.3 mg/dL (8.5-10.1); CREATININE 3.2 mg/dL (0.7-1.3)
[2017-04-22 11:34] LABS: POTASSIUM 6.5 mmol/L (3.5-5.1)
[2017-04-22 11:39] LABS: ALBUMIN 3.6 g/dL (3.4-5.0); TOTAL BILIRUBIN 0.7 mg/dL (<0.1-1.0); TOTAL PROTEIN 8.2 g/dL (6.4-8.2); TROPONIN-I 0.15 ng/mL (<0.04-0.07)
[2017-04-22 13:43] VITALS: BP 81/49
[2017-04-22 14:12] VITALS: BP 124/74
[2017-04-22 14:35] VITALS: BP 162/75
[2017-04-22 16:19] VITALS: BP 137/63
[2017-04-22 18:55] VITALS: BP 163/89
[2017-04-23] VITALS (7 sets, daily range): BP systolic 136–200; BP diastolic 76–117
[2017-04-23 00:52] LABS: FOLIC ACID 16.3 ng/mL (8.6-58.9)
[2017-04-23 04:48] LABS: URINE BILIRUBIN NEGATIVE (Negative); URINE BLOOD NEGATIVE (Negative); URINE COLOR YELLOW; URINE GLUCOSE-RANDOM* NEGATIVE (Negative); URINE KETONES NEGATIVE (Negative); URINE LEUKOCYTES-REFLEX TRACE (Negative); URINE PROTEIN (DIPSTICK) NEGATIVE (Negative); URINE SPECIFIC GRAVITY 1.015 (1.003-1.035); URINE UROBILINOGEN 0.2 E.U./dl (0.2-1.0)
[2017-04-23 05:55] LABS: CALCIUM 9.6 mg/dL (8.5-10.1); CREATININE 2.5 mg/dL (0.7-1.3); MAGNESIUM 1.3 mg/dL (1.8-2.4); POTASSIUM 4.8 mmol/L (3.5-5.1)
[2017-04-23 06:51] LABS: ABSOLUTE NEUTROPHILS 1.9 thou/uL (1.4-8.2); BASOPHILS 1.1 % (0.0-2.0); HEMATOCRIT 38.7 % (42.0-52.0); HEMOGLOBIN 13.1 gm/dL (14.0-18.0); LYMPHOCYTES 41.1 % (24.0-44.0); MCH 29.4 pg (26.0-34.0); MCHC 33.8 g/dL (28.0-37.0); MCV 87.1 fL (80.0-100.0); MONOCYTES 10.1 % (1.0-8.0); PLATELET COUNT 221 thou/uL (150-400); POLYS 47.7 % (36.0-66.0); RBC 4.44 mil/uL (4.50-6.00); RDW 15.1 % (10.5-14.5); WBC 4.1 thou/uL (4.0-11.0)
[2017-04-23 07:00] LABS: MANUAL DIFF NO
[2017-04-24 03:45] VITALS: BP 158/91
[2017-04-24 04:47] LABS: ABSOLUTE NEUTROPHILS 1.9 thou/uL (1.4-8.2); BASOPHILS 0.7 % (0.0-2.0); HEMATOCRIT 39.2 % (42.0-52.0); HEMOGLOBIN 12.6 gm/dL (14.0-18.0); LYMPHOCYTES 39.4 % (24.0-44.0); MANUAL DIFF NO; MCH 28.1 pg (26.0-34.0); MCHC 32.2 g/dL (28.0-37.0); MCV 87.1 fL (80.0-100.0); MONOCYTES 11.1 % (1.0-8.0); PLATELET COUNT 207 thou/uL (150-400); POLYS 48.8 % (36.0-66.0); RDW 15.1 % (10.5-14.5); WBC 3.9 thou/uL (4.0-11.0)
[2017-04-24 05:02] LABS: ALBUMIN 3.2 g/dL (3.4-5.0); CALCIUM 9.8 mg/dL (8.5-10.1); CREATININE 2.1 mg/dL (0.7-1.3); MAGNESIUM 1.7 mg/dL (1.8-2.4); PHOSPHORUS 4.5 mg/dL (2.5-4.9); POTASSIUM 4.3 mmol/L (3.5-5.1)
[2017-04-24 08:23] VITALS: BP 150/86
[2017-04-24 14:10] VITALS: BP 162/87
[2017-04-24] MEDS ORDERED: SEROQUEL 25 MG25 M1 PO (16:01)
[2017-04-24] MEDS ORDERED: LISINOPRIL40 MG PO (16:01)
[2017-04-24] MEDS ORDERED: CHLORTHALIDONE25 MG PO (16:01)
[2017-04-24] MEDS ORDERED: KEPPRA 500 MG500 M1 PO (16:01)
[2017-04-24 17:17] VITALS: BP 175/89
[2017-04-24 20:06] VITALS: BP 154/89
[2017-04-25 05:18] VITALS: BP 155/96
[2017-04-25 06:22] LABS: ALBUMIN 3.1 g/dL (3.4-5.0); CALCIUM 9.9 mg/dL (8.5-10.1); CREATININE 2.1 mg/dL (0.7-1.3); PHOSPHORUS 3.9 mg/dL (2.5-4.9); POTASSIUM 4.9 mmol/L (3.5-5.1)
[2017-04-25 13:07] VITALS: BP 149/99
[2017-04-25 13:08] LABS: ALPHA TOCOPHEROL 9.2 mg/L (5.3-17.5)
[2017-04-25 18:00] VITALS: BP 173/101
[2017-04-25 20:21] VITALS: BP 162/93
[2017-04-26 04:04] VITALS: BP 136/75
[2017-04-26 07:21] VITALS: BP 163/80
[2017-04-26 11:23] VITALS: BP 115/77
[2017-04-26 11:28] LABS: HEMATOCRIT 40.5 % (42.0-52.0); HEMOGLOBIN 13.3 gm/dL (14.0-18.0); MCH 28.5 pg (26.0-34.0); MCHC 32.8 g/dL (28.0-37.0); MCV 86.7 fL (80.0-100.0); RBC 4.67 mil/uL (4.50-6.00); RDW 14.9 % (10.5-14.5); WBC 4.6 thou/uL (4.0-11.0)
[2017-04-26 11:40] LABS: CALCIUM 9.4 mg/dL (8.5-10.1); CREATININE 1.9 mg/dL (0.7-1.3)
[2017-04-26] MEDS ORDERED: ALDACTONE25 MG PO (12:32)
== END 2017-04-26 16:00 | DRG 70 ==
LOC: ER 10:08 → 4W 12:09 → EROBS 12:09 → 4W 14:12
PROVIDERS: Emergency Medicine; Hospitalist; Internal Medicine; Internal Medicine Nephrology; Nurse Practitioner; Psychiatry & Neurology Neurology
DX: G93.41 Metabolic encephalopathy (principal); N17.0 Acute kidney failure with tubular necrosis; I13.0 Hypertensive heart and chronic kidney disease with heart failure and stage 1 through stage 4 chronic kidney disease, or unspecified chronic kidney disease; I69.951 Hemiplegia and hemiparesis following unspecified cerebrovascular disease affecting right dominant side; R56.9 Unspecified convulsions; F03.90 Unspecified dementia, unspecified severity, without behavioral disturbance, psychotic disturbance, mood disturbance, and anxiety; E78.5 Hyperlipidemia, unspecified; I25.10 Atherosclerotic heart disease of native coronary artery without angina pectoris; I25.5 Ischemic cardiomyopathy; N18.3 Chronic kidney disease, stage 3 (moderate); J44.9 Chronic obstructive pulmonary disease, unspecified; K21.9 Gastro-esophageal reflux disease without esophagitis; E87.5 Hyperkalemia; E11.40 Type 2 diabetes mellitus with diabetic neuropathy, unspecified; E11.22 Type 2 diabetes mellitus with diabetic chronic kidney disease; I50.9 Heart failure, unspecified; Z86.19 Personal history of other infectious and parasitic diseases; Z87.891 Personal history of nicotine dependence; Z79.899 Other long term (current) drug therapy; Z95.1 Presence of aortocoronary bypass graft; Z95.5 Presence of coronary angioplasty implant and graft
CPT/HCPCS: 10045

== ENCOUNTER 2017-05-02 18:33 | Inpatient (IN) | payer OTHER ==
[~2017-05-02] VITALS: Ht 172.7 cm; Wt 66.9 kg
--- NOTE | ~2017-05-02 | EKG ---
[address] [address] ELECTROCARDIOGRAM REPORT Name: LENY LEONARD Room #: 461-P ADM IN M.R.#: [id number] Admission: 05/02/17 Attend Phys: Casey Evans MD Discharge: Date of : 48 Report #: [id number] THIS REPORT FOR: //name// 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: [id number] : 1950 Requested By: Casey Evans Order Number: [id number] MD: Pipo Alan Measurements Intervals [place] Rate: 62 P: 58 MI: 51 QRS: 237 QRSD: 138 T: 4 QT: 487 QTc: 495 Interpretive Statements A-V dual-paced rhythm with some inhibition No further analysis attempted due to paced rhythm Compared to ECG 04/22/2017 10:28:40 No significant change was found Electronically Signed On 05-03-2017 8:42:06 CDT by Pipo Alan [email or web address] <ELECTRONICALLY SIGNED> By: Pipo Alan MD, [facility] 05/03/17 0842 1847 46 Pipo Alan MD, [facility] /EPI
--- NOTE | ~2017-05-02 | HC ---
[facility] [place] [address] CONSULTATION Name: LENY LEONARD Room #: 461-P [facility] IN .R.#: [id number] Admission: 05/02/17 Attend Phys: Casey Evans MD Discharge: Date of : 48 Report #: [id number] THIS REPORT FOR: //name// CC: FAM unknown Casey Evans DATE OF SERVICE: 05/03/2017 NEPHROLOGY CONSULTATION ATTENDING PHYSICIAN: Dr. Evans. REASON FOR CONSULTATION: Chronic kidney disease. HISTORY OF PRESENT ILLNESS: A 66-year-old gentleman, quite well known to our service. He was hospitalized here over the last couple of weeks with worsening kidney function and poorly controlled hypertension, all of which was nicely controlled. He was in for 4 or 5 days, discharged about a week ago. His blood pressure at that time has come under nice control. His azotemia and electrolytes were also quite stable for several days before discharge on stable medications including a creatinine that was at baseline around 1.9. Electrolytes that were normal and blood pressures running in the 150/80 range, which was around goal at that point. He was discharged on stable medications for several days including Lipitor 10 mg daily, magnesium 64 mg b.i.d., Plavix 75 mg daily, fenofibrate 145 mg daily, fish oil, vitamin D, Imdur 120 mg daily, ranitidine 150 mg b.i.d., insulin, gabapentin 300 mg at bedtime, Zoloft 25 mg daily, carvedilol 12.5 mg b.i.d., lisinopril 20 mg daily, Seroquel 25 mg b.i.d., chlorthalidone 12.5 mg daily, Keppra 500 mg b.i.d., and spironolactone 25 mg b.i.d. Apparently, the patient developed worsening mental status, was seen in the emergency room here yesterday and was admitted. Creatinine was up to 3.1. Potassium was all the way up to 7. PAST MEDICAL HISTORY: He has got chronic dementia, hypertension, history of head trauma, ischemic cardiomyopathy with decreased ejection fraction and AICD with a history of heart failure, all of this history was taken from the charts and also includes hepatitis C. FAMILY HISTORY: Please see old charts. SOCIAL HISTORY: Please see old charts. REVIEW OF SYSTEMS: The patient really is not answering much in the way of questions. He is arousable and that is about it. [address] [address] CONSULTATION Name: LENY LEONARD Room #: 461-P ADM IN .R.#: [id number] Admission: 05/02/17 Attend Phys: Casey Evans MD Discharge: Date of : 48 Report #: [id number] PHYSICAL EXAMINATION: GENERAL: This is a comfortable appearing, but quite lethargic gentleman, difficult to arouse, difficult to get to follow commands of any kinds. SKIN: Unremarkable. SKELETAL: Well developed, well nourished. HEENT: Extraocular movements difficult to examine. No scleral icterus. Hearing and vision difficult to discern. Mucous membranes are slightly dry. NECK: Supple, no JVD. CHEST: Clear to auscultation. HEART: Regular. ABDOMEN: Soft. EXTREMITIES: Show no edema. NEUROLOGIC: Just lethargy and really not following much in the way of instructions. LABORATORY DATA: Hemoglobin is 11.5, white count only 6.9, and platelets 178. Sodium 134, potassium 5.3, down from 7; chloride 100, bicarbonate 26, creatinine 2.8, BUN 56, and albumin 3. ASSESSMENT: 1. Change in mental status, very difficult to determine. He may be over medicated, got some additional drugs at the [facility] care facility, certainly we will have to try and take him off most of his current medications and re-add judiciously. His potassium is coming down nicely. His blood pressure is reasonably well controlled. His sugars are improving, so we will simply follow along at this time. 2. Chronic dementia. 3. Difficult hypertension. 4. Chronic kidney disease stage 3. <ELECTRONICALLY SIGNED> By: Dayo Naranjo MD 05/07/17 1144 1029 1233 Dayo Naranjo MD /nt
[~2017-05-02 18:33] MED LIST changes: +KEPPRA 500 MG500 M1 PO
[2017-05-02 18:44] VITALS: BP 90/56
[2017-05-02 21:34] LABS: HEMATOCRIT 35.4 % (42.0-52.0); HEMOGLOBIN 11.4 gm/dL (14.0-18.0); MCH 27.9 pg (26.0-34.0); MCHC 32.3 g/dL (28.0-37.0); MCV 86.2 fL (80.0-100.0); RBC 4.1 mil/uL (4.50-6.00); RDW 14.7 % (10.5-14.5); WBC 7.3 thou/uL (4.0-11.0)
[2017-05-02 21:45] LABS: CALCIUM 9.9 mg/dL (8.5-10.1); CREATININE 3.1 mg/dL (0.7-1.3)
[2017-05-02 21:54] LABS: TOTAL BILIRUBIN 0.7 mg/dL (<0.1-1.0)
[2017-05-02 21:55] LABS: ALBUMIN 3.2 g/dL (3.4-5.0); TOTAL PROTEIN 8.1 g/dL (6.4-8.2); TROPONIN-I 0.1 ng/mL (<0.04-0.07)
[2017-05-02 23:18] VITALS: BP 164/80
[2017-05-02 23:33] VITALS: BP 164/80
[2017-05-03 00:27] VITALS: BP 136/74
[2017-05-03 04:02] LABS: CALCIUM 9.8 mg/dL (8.5-10.1); CREATININE 2.8 mg/dL (0.7-1.3); PHOSPHORUS 4.3 mg/dL (2.5-4.9); TROPONIN-I 0.09 ng/mL (<0.04-0.07)
[2017-05-03 04:11] LABS: POTASSIUM 5.3 mmol/L (3.5-5.1)
[2017-05-03 04:13] VITALS: BP 155/83
[2017-05-03 06:10] LABS: HEMATOCRIT 34.8 % (42.0-52.0); HEMOGLOBIN 11.5 gm/dL (14.0-18.0); MCH 28.4 pg (26.0-34.0); MCHC 33.1 g/dL (28.0-37.0); MCV 85.8 fL (80.0-100.0); RBC 4.06 mil/uL (4.50-6.00); WBC 6.9 thou/uL (4.0-11.0)
[2017-05-03 07:46] VITALS: BP 183/87
[2017-05-03 12:26] VITALS: BP 139/80
[2017-05-03 15:38] LABS: URINE BILIRUBIN NEGATIVE (Negative); URINE BLOOD NEGATIVE (Negative); URINE COLOR YELLOW; URINE GLUCOSE-RANDOM* NEGATIVE (Negative); URINE KETONES NEGATIVE (Negative); URINE NITRITE POSITIVE (Negative); URINE PROTEIN (DIPSTICK) NEGATIVE (Negative); URINE SPECIFIC GRAVITY 1.015 (1.003-1.035); URINE UROBILINOGEN 0.2 E.U./dl (0.2-1.0)
[2017-05-03 15:47] LABS: BACTERIA >30 Many /HPF (None Seen); CASTS None Seen /LPF (None Seen); CRYSTALS None Seen /LPF (None Seen); SQUAMOUS 0-3 Few /LPF (0-3); URINE RBC None Seen /HPF (0-2); URINE WBC >25 Many /HPF (0-5)
[2017-05-03 16:01] VITALS: BP 151/94
[2017-05-03 19:50] VITALS: BP 170/111
[2017-05-04 00:14] VITALS: BP 205/105
[2017-05-04 05:00] VITALS: BP 190/142
[2017-05-04 07:05] LABS: ALBUMIN 2.9 g/dL (3.4-5.0); CALCIUM 9.3 mg/dL (8.5-10.1); PHOSPHORUS 2.9 mg/dL (2.5-4.9); POTASSIUM 5.4 mmol/L (3.5-5.1)
[2017-05-04 11:52] LABS: HEMATOCRIT 36.6 % (42.0-52.0); HEMOGLOBIN 12.1 gm/dL (14.0-18.0); MCH 28.7 pg (26.0-34.0); MCHC 33.2 g/dL (28.0-37.0); MCV 86.4 fL (80.0-100.0); RBC 4.24 mil/uL (4.50-6.00); RDW 14.8 % (10.5-14.5); WBC 6.1 thou/uL (4.0-11.0)
[2017-05-04 15:25] VITALS: BP 92/51
[2017-05-04 19:30] VITALS: BP 143/71
[2017-05-05 00:03] VITALS: BP 120/78
[2017-05-05 03:25] VITALS: BP 139/81
[2017-05-05 05:27] LABS: HEMATOCRIT 37.4 % (42.0-52.0); HEMOGLOBIN 12.1 gm/dL (14.0-18.0); MCH 27.7 pg (26.0-34.0); MCHC 32.4 g/dL (28.0-37.0); MCV 85.6 fL (80.0-100.0); RBC 4.36 mil/uL (4.50-6.00); RDW 14.8 % (10.5-14.5); WBC 4.5 thou/uL (4.0-11.0)
[2017-05-05 05:46] LABS: ALBUMIN 2.7 g/dL (3.4-5.0); CALCIUM 9.4 mg/dL (8.5-10.1); CREATININE 2.4 mg/dL (0.7-1.3)
[2017-05-05 05:48] LABS: POTASSIUM 4.4 mmol/L (3.5-5.1)
[2017-05-05 07:38] VITALS: BP 180/91
[2017-05-05 16:50] VITALS: BP 126/77
[2017-05-05 19:49] VITALS: BP 107/66
[2017-05-06 04:21] VITALS: BP 138/77
[2017-05-06 04:44] LABS: HEMOGLOBIN 12.2 gm/dL (14.0-18.0); MCHC 32.9 g/dL (28.0-37.0); MCV 85.3 fL (80.0-100.0); RBC 4.33 mil/uL (4.50-6.00); RDW 14.5 % (10.5-14.5); WBC 4.8 thou/uL (4.0-11.0)
[2017-05-06 05:04] LABS: ALBUMIN 2.8 g/dL (3.4-5.0); CALCIUM 9.8 mg/dL (8.5-10.1); CREATININE 2.4 mg/dL (0.7-1.3); PHOSPHORUS 4.4 mg/dL (2.5-4.9); POTASSIUM 4.2 mmol/L (3.5-5.1)
[2017-05-06 07:57] VITALS: BP 139/97
[2017-05-06 12:56] VITALS: BP 124/77
[2017-05-06 14:38] LABS: PROT/CREAT RATIO 0.2; URINE CREATININE-RANDOM* 63.6 mg/dL; URINE PROTEIN-RANDOM* 14.8 mg/dL (<11.9)
[2017-05-06 16:00] VITALS: BP 128/69
[2017-05-06 20:30] VITALS: BP 178/72
[2017-05-07 04:10] VITALS: BP 127/79
[2017-05-07 08:47] VITALS: BP 132/88
[2017-05-07 12:03] VITALS: BP 98/65
[2017-05-07 17:16] VITALS: BP 118/98
[2017-05-07 19:19] VITALS: BP 104/61
[2017-05-08 03:39] VITALS: BP 111/64
[2017-05-08 08:10] VITALS: BP 132/77
[2017-05-08 12:36] VITALS: BP 135/85
[2017-05-08] MEDS ORDERED: SEROQUEL 25 MG25 M1 PO (13:32)
[2017-05-08] MEDS ORDERED: DEMADEX20 MG PO (13:32)
[2017-05-08] MEDS ORDERED: CIPRO500 MG PO (13:37)
== END 2017-05-08 17:00 | DRG 70 ==
LOC: ER 18:33 → EROBS 22:07 → 4W 22:07
PROVIDERS: Emergency Medicine; Hospitalist; Internal Medicine Nephrology; Nurse Practitioner Family
DX: G93.41 Metabolic encephalopathy (principal); E43 Unspecified severe protein-calorie malnutrition; N17.9 Acute kidney failure, unspecified; K86.1 Other chronic pancreatitis; I13.0 Hypertensive heart and chronic kidney disease with heart failure and stage 1 through stage 4 chronic kidney disease, or unspecified chronic kidney disease; N39.0 Urinary tract infection, site not specified; I50.20 Unspecified systolic (congestive) heart failure; F01.51 Vascular dementia, unspecified severity, with behavioral disturbance; E78.5 Hyperlipidemia, unspecified; I25.10 Atherosclerotic heart disease of native coronary artery without angina pectoris; I25.5 Ischemic cardiomyopathy; J44.9 Chronic obstructive pulmonary disease, unspecified; K21.9 Gastro-esophageal reflux disease without esophagitis; E11.22 Type 2 diabetes mellitus with diabetic chronic kidney disease; N18.3 Chronic kidney disease, stage 3 (moderate); E11.40 Type 2 diabetes mellitus with diabetic neuropathy, unspecified; E87.5 Hyperkalemia; F17.210 Nicotine dependence, cigarettes, uncomplicated; Z66 Do not resuscitate; G40.909 Epilepsy, unspecified, not intractable, without status epilepticus; Z95.1 Presence of aortocoronary bypass graft; Z95.810 Presence of automatic (implantable) cardiac defibrillator; I69.320 Aphasia following cerebral infarction; Z68.22 Body mass index [BMI] 22.0-22.9, adult
CPT/HCPCS: 10045

== ENCOUNTER 2017-05-09 13:06 | Emergency (ER) | payer OTHER ==
[~2017-05-09] VITALS: Ht 177.8 cm; Wt 72.6 kg
--- NOTE | ~2017-05-09 | EKG ---
[facility] [place] [address] ELECTROCARDIOGRAM REPORT Name: LENY LEONARD Room #: [facility] M.R.#: [id number] Admission: Attend Phys: Discharge: Date of : 46 Report #: [id number] THIS REPORT FOR: //name// [facility] ED Test Date: 2017-05-09 Test Time: 13:42:08 Pat Name: LENY LEONARD Department: Room: Gender: M Card Tender: SYLWIA : 1950 Requested By: Brown Burns Order Number: [id number] MD: Measurements Intervals [place] Rate: 76 P: 76 ME: 144 QRS: 224 QRSD: 141 T: 99 QT: 466 QTc: 525 Interpretive Statements Atrial-sensed ventricular-paced rhythm No further analysis attempted due to paced rhythm Compared to ECG 05/02/2017 18:47:48 No significant changes [email or web address] By: 1342 1342 Mariya Meraz MD /EPI
[~2017-05-09 13:06] MED LIST changes: +CIPRO500 MG PO; +DEMADEX20 MG PO
[2017-05-09 14:47] LABS: HEMATOCRIT 36.1 % (42.0-52.0); HEMOGLOBIN 11.9 gm/dL (14.0-18.0); MCHC 32.9 g/dL (28.0-37.0); MCV 85.2 fL (80.0-100.0); RBC 4.23 mil/uL (4.50-6.00); WBC 3.7 thou/uL (4.0-11.0)
[2017-05-09 14:47] LABS: CALCIUM 9.8 mg/dL (8.5-10.1); CREATININE 3.2 mg/dL (0.7-1.3); POTASSIUM 4.3 mmol/L (3.5-5.1)
[2017-05-09 14:52] LABS: ALBUMIN 3.2 g/dL (3.4-5.0); DIRECT BILIRUBIN 0.3 mg/dL (<0.1-0.3); MAGNESIUM 1.5 mg/dL (1.8-2.4); TOTAL BILIRUBIN 0.5 mg/dL (<0.1-1.0); TOTAL PROTEIN 7.8 g/dL (6.4-8.2)
[2017-05-09 14:58] LABS: TROPONIN-I 0.11 ng/mL (<0.04-0.07)
[2017-05-09 15:23] LABS: URINE BILIRUBIN NEGATIVE (Negative); URINE BLOOD NEGATIVE (Negative); URINE COLOR YELLOW; URINE GLUCOSE-RANDOM* 1+ (Negative); URINE KETONES NEGATIVE (Negative); URINE LEUKOCYTES-REFLEX NEGATIVE (Negative); URINE PROTEIN (DIPSTICK) NEGATIVE (Negative); URINE UROBILINOGEN 0.2 E.U./dl (0.2-1.0)
[2017-05-09 17:12] LABS: APTT 29.4 Seconds (24.5-32.8); INR 1.3; PROTIME 13.1 Seconds (9.3-11.4)
== END 2017-05-09 18:53 | disposition home or self-care (01) ==
LOC: ER 13:06
PROVIDERS: Emergency Medicine
DX: I13.0 Hypertensive heart and chronic kidney disease with heart failure and stage 1 through stage 4 chronic kidney disease, or unspecified chronic kidney disease (principal); E11.22 Type 2 diabetes mellitus with diabetic chronic kidney disease; N18.3 Chronic kidney disease, stage 3 (moderate); I50.9 Heart failure, unspecified; R41.82 Altered mental status, unspecified; E11.40 Type 2 diabetes mellitus with diabetic neuropathy, unspecified; E78.5 Hyperlipidemia, unspecified; I25.10 Atherosclerotic heart disease of native coronary artery without angina pectoris; J44.9 Chronic obstructive pulmonary disease, unspecified; F03.90 Unspecified dementia, unspecified severity, without behavioral disturbance, psychotic disturbance, mood disturbance, and anxiety; K21.9 Gastro-esophageal reflux disease without esophagitis; K86.1 Other chronic pancreatitis; F22 Delusional disorders; Z79.4 Long term (current) use of insulin; Z95.5 Presence of coronary angioplasty implant and graft; Z95.0 Presence of cardiac pacemaker; Z86.19 Personal history of other infectious and parasitic diseases

== ENCOUNTER 2017-05-17 18:03 | Emergency (ER) | payer OTHER ==
[~2017-05-17] VITALS: Ht 175.3 cm; Wt 69.4 kg
--- NOTE | ~2017-05-17 | EKG ---
[place] [address] [place] [address] ELECTROCARDIOGRAM REPORT Name: LENY LEONARD Room #: DEP Ken#: [id number] Admission: 05/17/17 Attend Phys: Discharge: 05/17/17 Date of : 48 Report #: [id number] THIS REPORT FOR: //name// [facility] ED Test Date: 2017-05-17 Test Time: 18:06:54 Pat Name: LENY LEONARD Department: Room: Gender: Hi Teacher: MALE : 1950 Requested By: Jorge Bryan Order Number: [id number] MD: Pipo Alan Measurements Intervals [place] Rate: 76 P: 83 AK: 134 QRS: 242 QRSD: 146 T: 185 QT: 453 QTc: 510 Interpretive Statements Atrial-sensed ventricular-paced rhythm No further analysis attempted due to paced rhythm Baseline wander in lead(s) V4 Compared to ECG 05/09/2017 13:42:08 No significant changes Electronically Signed On 05-19-2017 13:30:11 CDT by Pipo Alan [email or web address] <ELECTRONICALLY SIGNED> By: Pipo Alan MD, [facility] 05/19/17 1330 1806 180 Pipo Alan MD, [facility] /EPI
[2017-05-17 19:06] LABS: CALCIUM 9.9 mg/dL (8.5-10.1); CREATININE 3.4 mg/dL (0.7-1.3); POTASSIUM 3.9 mmol/L (3.5-5.1)
[2017-05-17 19:14] LABS: ALBUMIN 3.2 g/dL (3.4-5.0); TOTAL BILIRUBIN 0.6 mg/dL (<0.1-1.0); TOTAL PROTEIN 7.9 g/dL (6.4-8.2); TROPONIN-I 0.16 ng/mL (<0.04-0.07)
[2017-05-17 19:34] LABS: URINE BILIRUBIN NEGATIVE (Negative); URINE BLOOD NEGATIVE (Negative); URINE COLOR YELLOW; URINE GLUCOSE-RANDOM* 1+ (Negative); URINE KETONES NEGATIVE (Negative); URINE NITRITE NEGATIVE (Negative); URINE PROTEIN (DIPSTICK) NEGATIVE (Negative); URINE SPECIFIC GRAVITY 1.015 (1.003-1.035); URINE UROBILINOGEN 0.2 E.U./dl (0.2-1.0)
[2017-05-17 19:36] LABS: ABSOLUTE NEUTROPHILS 2.4 thou/uL (1.4-8.2); BASOPHILS 0.9 % (0.0-2.0); HEMATOCRIT 30.4 % (42.0-52.0); HEMOGLOBIN 10.2 gm/dL (14.0-18.0); LYMPHOCYTES 29.8 % (24.0-44.0); MCH 28.4 pg (26.0-34.0); MCHC 33.4 g/dL (28.0-37.0); MONOCYTES 8.3 % (1.0-8.0); PLATELET COUNT 171 thou/uL (150-400); RBC 3.58 mil/uL (4.50-6.00); RDW 14.3 % (10.5-14.5); WBC 3.9 thou/uL (4.0-11.0)
[2017-05-17 19:40] LABS: MANUAL DIFF NO
== END 2017-05-17 21:30 ==
LOC: ER 18:03
PROVIDERS: Emergency Medicine
DX: R53.1 Weakness (principal); F03.90 Unspecified dementia, unspecified severity, without behavioral disturbance, psychotic disturbance, mood disturbance, and anxiety; R79.89 Other specified abnormal findings of blood chemistry; I13.0 Hypertensive heart and chronic kidney disease with heart failure and stage 1 through stage 4 chronic kidney disease, or unspecified chronic kidney disease; E11.22 Type 2 diabetes mellitus with diabetic chronic kidney disease; N18.3 Chronic kidney disease, stage 3 (moderate); I50.9 Heart failure, unspecified; E11.40 Type 2 diabetes mellitus with diabetic neuropathy, unspecified; E78.00 Pure hypercholesterolemia, unspecified; I25.10 Atherosclerotic heart disease of native coronary artery without angina pectoris; J44.9 Chronic obstructive pulmonary disease, unspecified; K21.9 Gastro-esophageal reflux disease without esophagitis; Z79.4 Long term (current) use of insulin; Z95.1 Presence of aortocoronary bypass graft; Z95.0 Presence of cardiac pacemaker